=== PATIENT | female | born 1990 | race Caucasian/White ===

== ENCOUNTER 2023-08-04 00:25 | Emergency (ER) | payer MEDICAID, SELFPAY ==
[2023-08-04 00:35] VITALS: BP 162/94; PULSE 108; O2SAT 98
--- NOTE | 2023-08-04 00:46 | ED.ABDPAIN ---
HPI - Abdominal Pain General Stated Complaint: ABD PAIN Time Seen by Provider: 08/04/23 00:46 Source: patient Mode of arrival: ambulatory Limitations: no limitations PMFSH Social History Social History Advance Directives: No Advance Directives Information Provided: No Discharge Plan Discharge Print Language: Hungarian
--- NOTE | 2023-08-04 00:51 | PC.NURSE ---
per EMS they state that pt was very vague in her complaints and requested transfer to [place]. they state she told them that she missed the last bus into [place] where she resides. they speculate she was only requesting to come to [place] so she could get home as she [place] on [address]. 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
--- NOTE | 2023-08-04 00:51 | PC.NURSE ---
went into [facility] and pt had left
== END 2023-08-04 01:10 | disposition left against medical advice (07) ==
PROVIDERS: Emergency Provider Emergency Medicine
DX: Z53.21 Procedure and treatment not carried out due to patient leaving prior to being seen by health care provider (principal); R10.9 Unspecified abdominal pain

== ENCOUNTER 2023-10-09 16:22 | Emergency (ER) | payer SELFPAY ==
--- NOTE | 2023-10-09 17:01 | PC.NURSE ---
pt was called to triage x2 with no response
== END 2023-10-09 17:01 | disposition left against medical advice (07) ==
PROVIDERS: Emergency Provider Emergency Medicine
DX: R51.9 Headache, unspecified (principal)

== ENCOUNTER 2023-10-09 21:31 | Emergency (ER) | payer SELFPAY ==
[2023-10-09 21:54] VITALS: BP 127/72; PULSE 68; RESP 20; TEMP 36.5; O2SAT 100; BMI 24.2
[2023-10-09 22:27] LABS: MANUAL DIFF FLAG NO
[2023-10-09 22:28] LABS: Basophils Absolute Auto 0.1 X10*3/uL (0.0-0.2); Basophils Percent Auto 1.1 % (0-2); Eosinophils Absolute Auto 0.2 X10*3/uL (0.0-0.4); Hematocrit 33.3 % (37.0-47.0); Hemoglobin 10.7 g/dl (12.0-16.0); Imm Gran Abs Auto 0.02 X10*3/uL (0.00-0.03); Imm Gran Pct Auto 0.3 % (0.0-0.4); Lymphocytes Absolute Auto 2.2 X10*3/uL (1.2-4.9); Lymphocytes Percent Auto 33.5 % (20-40); Mean Corpuscular HGB Conc 32.1 g/dl (31.0-35.0); Mean Corpuscular Hemoglobin 27.7 pg (27.0-33.0); Mean Corpuscular Volume 86.3 fL (80.0-98.0); Mean Platelet Volume 10.4 fL (9.4-12.3); Monocytes Absolute Auto 0.6 X10*3/uL (0.1-1.2); Neutrophils Absolute Auto 3.4 x10*3/uL (2.0-8.3); Neutrophils Percent Auto 52.1 % (45-73); Platelet Count 240 X10*3/uL (160-400); Red Blood Count 3.86 X10*6/uL (4.20-5.50); Red Cell Distribution Width 17.4 % (11.0-16.0); White Blood Count 6.4 X10*3/uL (4.8-10.8)
[2023-10-09 22:43] LABS: Alanine Aminotransferase 159 U/L (0-31); Albumin Level 3.4 g/dL (3.5-5.0); Alkaline Phosphatase 92 U/L (39-117); Anion Gap 12 (12-20); Aspartate Amino Transferase 106 U/L (5-31); Bilirubin Total 0.6 mg/dL (0.0-1.0); Blood Urea Nitrogen 14 mg/dL (9-16); Calcium 8.8 mg/dL (8.4-10.2); Carbon Dioxide 27 mmol/L (22-29); Chloride 105 mmol/L (96-108); Estimated Glomerular Filt Rate > 60; Glucose Random 97 mg/dL (60-115); Potassium 4.3 mmol/L (3.3-5.1); Sodium 140 mmol/L (135-145); Total Protein 6.6 g/dL (6.5-8.0)
--- NOTE | 2023-10-10 00:22 | ED_ITS ---
HPI - General Adult General Chief complaint: Dental/Oral Stated complaint: facial swelling + possible tooth infection Time Seen by Provider: 10/10/23 00:17 Source: patient, RN notes reviewed and old records reviewed Mode of arrival: ambulatory Limitations: no limitations History of Present Illness ED Provider: Kwasi HPI narrative: 33-year-old female presents for evaluation of right facial swelling. The symptoms started this morning when she woke up. She states that she has multiple dental issues old dental fractures but does not have a dentist to have them removed She is able to eat and drink without difficulty She believes the affected teeth around the upper gums on the right side. Denies any recent facial or dental trauma Related Data Previous Rx's ?Medication ?Instructions ?Recorded amoxicillin 875 mg-potassium 1 tab PO Q12H #19 tabs 10/10/23 clavulanate 125 mg tablet Allergies Allergy/AdvReac Type Severity Reaction Status Date / Time divalproex sodium AdvReac Unknown Verified 10/09/23 21:56 [From Depakote] escitalopram [From Lexapro] AdvReac Unknown Verified 10/09/23 21:56 Review of Systems 2 Constitutional: Constitutional: Denies body ache(s), Denies chills, Denies fever(s) and Denies headache(s) ENT: Denies headache(s) and Reports mouth pain Cardiovascular: Cardiovascular: Denies chest pain and Denies dyspnea Respiratory: Respiratory: Denies cough and Denies dyspnea Gastrointestinal: Gastrointestinal: Denies abdominal pain, Denies nausea and Denies vomiting Musculoskeletal: Musculoskeletal: Denies back pain Integumentary/Breasts: Skin/Breast: Denies rash Neurologic: Denies headache(s) PMFSH Social History Social History Advance Directives: No Advance Directives Information Provided: Yes Do you have a plan to hurt others: No Plan Physical Exam ED Vital Signs: Vital Signs - 24 hr 10/09/23 21:54 Temperature 97.7 F Pulse Rate 68 Respiratory Rate 20 Blood Pressure 127/72 Pulse Oximetry 100 Oxygen Delivery Method Room Air BMI result Body Mass Index 24.2 Const General: healthy appearing, comfortable, no acute distress, alert and awake Nutritional Appearance: well nourished Orientation/consciousness: patient oriented x3 HENMT Other: Patient has right-sided facial swelling involving the right cheek. This does not extend above the maxillary region or towards the eye. There is no extension down towards the right side of the neck either. Patient has multiple dental fractures and dental caries involving the upper and lower gums. There is no obvious dental abscess. Airway is widely pain Head: Yes atraumatic Eyes Eyelids: Yes eyelids normal Conjunctivae: conjunctivae normal Sclerae: sclerae normal Corneas: corneas normal Pupils: Equal, round and reactive pupils present EOM: EOMs intact bilaterally Neck Neck: Yes full ROM Resp Effort & Inspection: normal respiratory effort, able to speak in complete sentences and not labored Skin General skin exam: elasticity normal Neuro General: patient oriented x3 Cranial nerves: Yes Equal, round and reactive pupils present and Yes Bilaterally intact EOM present Cognition (Neuro): normal cognition Medical Decision Making Medical Decision Making [facility] Narrative: 33-year-old female presents for evaluation of facial pain and swelling. She is multiple dental caries, likely an acute dental infection, there is no evidence of drainable abscess will discharge the patient with Augmentin and she was provided with a list of dental clinics Differential Diagnosis Differential Diagnoses: The differential diagnosis associated with the presentation includes Dental caries Dental trauma Gingivitis Dental abscess Facial swelling Facial pain Lab Data [facility] Lab Attestation statement: I reviewed the patient's lab results. No leukocytosis. The patient does have a mild anemia that is normocytic. This may be related to heavy menstrual cycle. No obvious source of bleeding today. Electrolytes within normal limits renal function within normal limits. Vital signs are normal, no evidence of sepsis 10/09/23 22:21 10/09/23 22:21 Labs: Lab Results 10/09/23 Range/Units 22:21 WBC 6.4 (4.8-10.8) X10*3/uL RBC 3.86 L (4.20-5.50) X10*6/uL Hgb 10.7 L (12.0-16.0) g/dl Hct 33.3 L (37.0-47.0) % MCV 86.3 (80.0-98.0) fL MCH 27.7 (27.0-33.0) pg MCHC 32.1 (31.0-35.0) g/dl RDW 17.4 H (11.0-16.0) % Plt Count 240 (160-400) X10*3/uL MPV 10.4 (9.4-12.3) fL Immature Gran % (Auto) 0.3 (0.0-0.4) % Neut % (Auto) 52.1 (45-73) % Lymph % (Auto) 33.5 (20-40) % [place] % (Auto) 10.0 (2-11) % Eos % (Auto) 3.0 (0-4) % Baso % (Auto) 1.1 (0-2) % Lymph # (Auto) 2.2 (1.2-4.9) X10*3/uL [place] # (Auto) 0.6 (0.1-1.2) X10*3/uL Eos # (Auto) 0.2 (0.0-0.4) X10*3/uL Baso # (Auto) 0.1 (0.0-0.2) X10*3/uL Abs Immat Gran (auto) 0.02 (0.00-0.03) X10*3/uL Absolute Neuts (auto) 3.4 (2.0-8.3) x10*3/uL Absolute Nucleated RBC 0.000 (0.0-0.012) X10*3/uL Nucleated RBC % (auto) 0.0 (0.0-0.2) /100WBC Sodium 140 (135-145) mmol/L Potassium 4.3 (3.3-5.1) mmol/L Chloride 105 (96-108) mmol/L Carbon Dioxide 27 (22-29) mmol/L Anion Gap 12 (12-20) BUN 14 (9-16) mg/dL Creatinine 0.78 (0.5-1.4) mg/dL Estim Creat Clear Calc 96.0 Estimated GFR > 60 Random Glucose 97 (60-115) mg/dL Calcium 8.8 (8.4-10.2) mg/dL Total Bilirubin 0.6 (0.0-1.0) mg/dL AST 106 H (5-31) U/L ALT 159 H (0-31) U/L Alkaline Phosphatase 92 (39-117) U/L Total Protein 6.6 (6.5-8.0) g/dL Albumin 3.4 L (3.5-5.0) g/dL Discharge Plan Discharge Clinical Impression: Fracture of tooth, Dental caries, Facial swelling Patient Disposition: Home, Self-Care Instructions: Acute Dental Trauma (ED), Toothache (ED) Additional Instructions: The swelling in your face is likely related to a dental infection. Take Augmentin twice daily for 10 days. Apply warm compresses to the area of swelling every 4 hours for 10-15 minutes. Follow-up with a dentist. You were provided with a list of dental clinics, but you do not have to see 1 of them if you would like to go elsewhere Prescriptions: New amoxicillin-pot clavulanate 875-125 mg tablet 1 tab PO Q12H Qty: 19 0RF Print Language: Frisian
[2023-10-10] MEDS: Amoxicillin/Potassium Clav 875 MG TABLET PO (00:29)
[2023-10-10 00:36] VITALS: BP 109/83; PULSE 65; RESP 18; TEMP 37.2; O2SAT 96
== END 2023-10-10 00:37 | disposition home or self-care (01) ==
PROVIDERS: Emergency Provider Internal Medicine
DX: K02.9 Dental caries, unspecified (principal); R51.9 Headache, unspecified; Z79.899 Other long term (current) drug therapy
CPT/HCPCS: 36415; 80053; 85025; 99282; 99283

== ENCOUNTER 2023-10-10 01:34 | Emergency (ER) | payer SELFPAY ==
--- NOTE | ~2023-10-10 | US_ITS ---
EXAMINATION: US VENOUS ULTRASOUND WITH DOPPLER LOWER EXTREMITY, RIGHT CLINICAL INFORMATION: Pain swelling erythema COMPARISON: None available. TECHNIQUE: Ultrasound of the deep veins is performed from the hip to the calf with compression sonography and color and pulse Doppler assessment. Spectral analysis with color-flow imaging is performed. FINDINGS: There is normal venous compression and respiratory variation and augmented flow. The visualized common femoral vein, superficial femoral vein, profunda femoral vein, popliteal vein, and the trifurcation region shows no evidence of deep venous thrombosis. There is no significant popliteal fossa cyst. Right inguinal lymph nodes noted morphologically benign-appearing the largest measuring 8 mm in short axis. Left inguinal lymph node noted relatively benign-appearing measuring 8 mm in short axis. If the patient's symptoms persist, followup ultrasound in 5 days 7 days might be of value to exclude proximal propagation from a non-visualized calf vein. US/US venous duplex LE RT IMPRESSION: 1. No DVT demonstrated in the right lower extremity. 2. Bilateral inguinal lymph nodes noted morphologically benign-appearing the largest measuring 8 mm in short axis.
--- NOTE | ~2023-10-10 | XR_ITS ---
EXAMINATION: XR TIBIA AND FIBULA, RIGHT CLINICAL INFORMATION: Infection anterior aspect of ankle COMPARISON: None available. TECHNIQUE: AP and lateral views of the right tibia and fibula were obtained. FINDINGS: Questionable defect along the dorsal aspect of the navicular may reflect a nondisplaced fracture versus summation artifact. Correlation with point tenderness. Ankle mortise is symmetric. Joint space alignment are maintained. Slight soft tissue edema of the lower extremity without soft tissue gas identified. XR/XR tibia fibula RT 2V IMPRESSION: 1. Questionable defect along the dorsal aspect of the navicular may reflect a nondisplaced fracture versus summation artifact. Correlation with point tenderness. 2. Slight soft tissue edema of the lower extremity without soft tissue gas identified.
[2023-10-10 01:58] VITALS: BP 113/64; PULSE 64; RESP 16; TEMP 36.9; O2SAT 98; BMI 30.9
[2023-10-10 05:15] VITALS: BP 114/66; PULSE 66; RESP 18; TEMP 36.8; O2SAT 98
[2023-10-10 07:43] VITALS: BP 149/90; PULSE 98; RESP 16; TEMP 37.1; O2SAT 97
--- NOTE | 2023-10-10 08:02 | ED_ITS ---
HPI - General Adult General Chief complaint: Extremity Problem Stated complaint: leg pain? Time Seen by Provider: 10/10/23 08:02 Source: patient Mode of arrival: ambulatory Limitations: no limitations History of Present Illness ED Provider: Marlene Lynn PA-C HPI narrative: The patient is a 33 year old assigned at female with a PMHx of DVT, and dental caries presents to the ER due to pain and wound of right lower extremity. Patient reports that the pain is sharp and achy, constant. Does not radiate elsewhere. Unable to bear weight on that leg, and hurts to walk, states feels like my elizabeth is going to break when I walk. Was seen by [facility] 2 weeks ago and given PO and topical antibiotics for ulcer on right elizabeth with no improvement. Used Tylenol for pain with no relief. Was seen yesterday at [facility] for dental infection, was started PO amoxicillin-potassium clavulanate 875-125 mg. Has mild nausea. Denies headache, vision changes, fever, chills, V/C/D, abdominal pain, chest pain, palpitations, and dyspnea. Relieving factors: immobilization Exacerbating factors: movement Associated symptoms: denies other symptoms Treatments prior to arrival: other (ABX for dental infection) Related Data Previous Rx's ?Medication ?Instructions ?Recorded amoxicillin 875 mg-potassium 1 tab PO BID 10 days #20 tabs 10/10/23 clavulanate 125 mg tablet amoxicillin 875 mg-potassium 1 tab PO Q12H #19 tabs 10/10/23 clavulanate 125 mg tablet Allergies Allergy/AdvReac Type Severity Reaction Status Date / Time divalproex sodium AdvReac Unknown Verified 10/10/23 02:02 [From Depakote] escitalopram [From Lexapro] AdvReac Unknown Verified 10/10/23 02:02 Review of Systems 2 Constitutional: Constitutional: Reports no additional constitutional complaints, Denies chills, Denies fever(s) and Denies night sweats Eyes: Eyes: Reports no additional eye complaints, Denies blurry vision, Denies change in vision, Denies diplopia, Denies eye discharge, Denies loss of vision and Denies eye pain ENT: Reports dental pain, Denies dizziness and Reports facial pain Cardiovascular: Cardiovascular: Reports no additional cardiovascular complaints, Denies chest pain, Denies lightheadedness, Denies Loss of Consciousness and Denies dyspnea Respiratory: Respiratory: Reports no additional respiratory complaints and Denies dyspnea Gastrointestinal: Gastrointestinal: Reports no additional gastrointestinal complaints, Denies abdominal pain, Denies melena, Denies hematochezia, Denies change in bowel habits and Denies change in stool character Genitourinary: Genitourinary: Denies hematuria, Denies urinary frequency, Denies dysuria, Denies urinary incontinence, Denies urinary hesitancy and Denies urinary urgency Musculoskeletal: Musculoskeletal: Reports no additional musculoskeletal complaints, Reports as per HPI, Denies myalgias, Denies numbness and Denies tingling Comments: right lower leg pain, right lower leg wound Neurologic: Denies dizziness, Denies loss of vision, Denies numbness and Denies tingling Psychiatric: Psychiatric: Reports no additional psychiatric complaints Endocrine: Endocrine: Reports no additional endocrine complaints Hematologic/Lymphatic: Hematologic/Lymphatic: Reports no additional hematologic/lymphatic complaints Allergic/Immunologic: Allergic/Immunologic: Reports no additional allergic/immunologic complaints PMFSH Past Medical History Attestation statement: The following information was validated with the patient. Source: old records reviewed and nursing notes reviewed Social History Social History Smoked in Last 30 Days: Yes Use of substances other than those prescribed or required for medical reasons: No Advance Directives: No Advance Directives Information Provided: No Do you have a plan to hurt others: No Plan Patient : No Physical Exam ED Vital Signs: Vital Signs - 24 hr 10/10/23 01:58 10/10/23 05:15 10/10/23 07:43 Temperature 98.5 F 98.2 F 98.8 F Pulse Rate 64 66 98 Respiratory Rate 16 18 16 Blood Pressure 113/64 114/66 149/90 H Pulse Oximetry 98 98 97 Oxygen Delivery Method Room Air Room Air Room Air 10/10/23 09:47 10/10/23 11:42 10/10/23 11:47 Temperature 98.1 F 98 F 98 F Pulse Rate 91 80 80 Respiratory Rate 18 15 15 Blood Pressure 139/85 159/91 H 159/91 H Pulse Oximetry 98 99 99 Oxygen Delivery Method Room Air BMI result Body Mass Index 30.9 Const General: cooperative, no acute distress, alert and awake Nutritional Appearance: well nourished Orientation/consciousness: patient oriented x3 Limitations: no limitations [facility] Head: Yes normal to inspection and Yes atraumatic Ears: hearing grossly normal bilaterally and external ears normal General nose exam: Normal external nose present, no nasal discharge noted and no epistaxis Face and sinus: No abrasion, Yes edema and No laceration Mouth: Normal oral and palatal mucosa present, no drooling and no muffled voice Teeth and gingiva: poor dentition Eyes General: appearance normal, both eyes and all related structures Periorbital: periorbital findings normal Eyelids: Yes eyelids normal Conjunctivae: conjunctivae normal Pupils: Equal, round and reactive pupils present EOM: EOMs intact bilaterally Neck Neck: Yes normal visual inspection, Yes full ROM and Yes no lymphadenopathy Chest Chest palpation & inspection: normal inspection of the chest Resp Effort & Inspection: normal respiratory effort and able to speak in complete sentences Auscultation: clear to auscultation bilaterally Cardio Rate: regular rate Rhythm: regular rhythm GI Inspection: Yes normal to inspection Neuro General: patient oriented x3 and moves all extremities Cranial nerves: Yes Equal, round and reactive pupils present Cognition (Neuro): normal cognition Motor exam (neuro): Abnormal motor strength present (right lower extremity strength 3/5 ) Extrem Other: General: Yes full ROM, Yes capillary refill normal and Yes no calf tenderness Right upper extremity: normal to inspection and full ROM; no cyanosis and no edema Left upper extremity: normal to inspection and full ROM; no cyanosis and no edema Right lower extremity: normal to inspection, lower leg Details: tenderness, no edema, laceration (a localized ulcer located on the anterior aspect of the right elizabeth, well-defined borders, mild surrounding erythema, with exudate. no signs of necrotic tissue. Moderately tender to palpation around ulcer. ) and warmth and foot Details: toes with normal ROM (Limited active ROM of right toes of right foot, full active ROM) and no edema; no tenderness and no unusual warmth; no cyanosis and no edema Left lower extremity: normal to inspection and full ROM; no cyanosis and no edema Psych Appearance: grossly normal Mental Status: mental status grossly normal Affect: normal affect Attitude: cooperative Thought process: Normal thought process present Thought content: Normal thought content present Insight: Good insight present (Psych) Medications Administered Discontinued Medications Generic Name Dose Route Start Last Admin Trade Name Freq PRN Reason Stop Dose Admin Hydrocodone Bitart/Acetaminophen 1 tab 10/10/23 08:25 10/10/23 08:34 Hydrocodone Bit/Acetam 5/325 Tablet PO 10/10/23 08:26 1 tab ONCE ONE Administration Amoxicillin/Clavulanate Potassium 875 mg 10/10/23 11:26 10/10/23 11:43 Amoxicillin/Potassium Clav 875 Mg Tablet PO 10/10/23 11:27 875 mg ONCE ONE Administration Ketorolac Tromethamine 15 mg 10/10/23 12:35 10/10/23 12:39 Ketorolac Tromethamine 15 Mg/Ml Vial IM 10/10/23 12:36 15 mg ONCE ONE Administration Ondansetron HCl 4 mg 10/10/23 08:25 10/10/23 08:34 Ondansetron Odt 4 Mg Tab.Waldodis TRANSLINGU 10/10/23 08:26 4 mg ONCE ONE Administration Procedures Orthopedic Splinting/Casting Injury #1: Side: right Lower Extremity Injury Location: ankle and foot Lower Extremity Immobilizer: boot orthosis Medical Decision Making Medical Decision Making MDM Narrative: The patient is a 33 year old assigned at female with a PMHx of DVT, anxiety, and dental caries presents to the ER due to pain and ulcer of right lower extremity. On arrival to the ER, the patient is hemodynamically stable. On examination, RLE has a localized ulcer located on the anterior aspect of the right elizabeth, well-defined borders, mild surrounding erythema. No apparent necrotic tissue. The lesion is moderately tender to palpation and has been present for 2 weeks. Surrounding skin is warm to touch. No calf tenderness, erythema, or edema. Additionally, facial swelling is apparent. Was seen in the ER last night for dental infection. Being treated with Augmentin. Otherwise, remaining PE is unremarkable. For diagnostics, heme lab is unremarkable, CMP portrays AST of 145 and ALT 183, CRP of 1.04. All other lab results are unremarkable. Patient's right tib fib XR showed a possible navicular fx, given patient's clinical presentation, I suspect this is a fracture. I consulted with orthopedics who recommended covering the patient with augmentin, placing her in a walking boot, and having her follow up on an outpatient basis. Patient's right lower extremity was placed in a walking boot, without incident. Patient's PMS was intact prior to and after boot placement. Patient's RLE US was negative for DVT. Differential Diagnosis Differential Diagnoses: The differential diagnosis associated with the presentation includes venous stasis ulcer, tibia fracture, fibula fracture, DVT, cellulitis, foot fracture Admission/Observation Consideration of admission/observation: Escalation of care including admission/observation considered Patient would have been admitted to the hospital had her work up had any findings where hospital admission was appropriate and her clinical presentation warranted hospital admission. 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 My interpretation of these results are in the MDM Rationale portion of this note. 10/10/23 08:21 10/10/23 08:21 Labs: Lab Results 10/10/23 Range/Units 08:21 WBC 5.9 (4.8-10.8) X10*3/uL RBC 4.44 (4.20-5.50) X10*6/uL Hgb 12.2 (12.0-16.0) g/dl Hct 38.2 (37.0-47.0) % MCV 86.0 (80.0-98.0) fL MCH 27.5 (27.0-33.0) pg MCHC 31.9 (31.0-35.0) g/dl RDW 17.3 H (11.0-16.0) % Plt Count 277 (160-400) X10*3/uL MPV 10.8 (9.4-12.3) fL Immature Gran % (Auto) 0.5 H (0.0-0.4) % Neut % (Auto) 62.1 (45-73) % Lymph % (Auto) 26.1 (20-40) % [place] % (Auto) 8.1 (2-11) % Eos % (Auto) 2.2 (0-4) % Baso % (Auto) 1.0 (0-2) % Lymph # (Auto) 1.5 (1.2-4.9) X10*3/uL [place] # (Auto) 0.5 (0.1-1.2) X10*3/uL Eos # (Auto) 0.1 (0.0-0.4) X10*3/uL Baso # (Auto) 0.1 (0.0-0.2) X10*3/uL Abs Immat Gran (auto) 0.03 (0.00-0.03) X10*3/uL Absolute Neuts (auto) 3.7 (2.0-8.3) x10*3/uL Absolute Nucleated RBC 0.000 (0.0-0.012) X10*3/uL Nucleated RBC % (auto) 0.0 (0.0-0.2) /100WBC ESR 7 (0-20) MM/HR Sodium 139 (135-145) mmol/L Potassium 4.0 (3.3-5.1) mmol/L Chloride 108 (96-108) mmol/L Carbon Dioxide 25 (22-29) mmol/L Anion Gap 10 L (12-20) BUN 11 (9-16) mg/dL Creatinine 0.75 (0.5-1.4) mg/dL Estim Creat Clear Calc 102.2 Estimated GFR > 60 Random Glucose 94 (60-115) mg/dL Calcium 9.3 (8.4-10.2) mg/dL Total Bilirubin 1.0 (0.0-1.0) mg/dL AST 145 H (5-31) U/L ALT 183 H (0-31) U/L Alkaline Phosphatase 97 (39-117) U/L C-Reactive Protein 1.04 H (< or = 0.50) mg/dL Total Protein 6.7 (6.5-8.0) g/dL Albumin 3.5 (3.5-5.0) g/dL Hold Red Top See Note Independent Interpretation I performed an independent interpretation of an: Plain X-Ray and Ultrasound Interpretation: My interpretation is in agreement with the radiologist's impression of these imaging studies. - EXAMINATION: US VENOUS ULTRASOUND WITH DOPPLER LOWER EXTREMITY, RIGHT CLINICAL INFORMATION: Pain swelling erythema COMPARISON: None available. TECHNIQUE: Ultrasound of the deep veins is performed from the hip to the calf with compression sonography and color and pulse Doppler assessment. Spectral analysis with color-flow imaging is performed. FINDINGS: There is normal venous compression and respiratory variation and augmented flow. The visualized common femoral vein, superficial femoral vein, profunda femoral vein, popliteal vein, and the trifurcation region shows no evidence of deep venous thrombosis. There is no significant popliteal fossa cyst. Right inguinal lymph nodes noted morphologically benign-appearing the largest measuring 8 mm in short axis. Left inguinal lymph node noted relatively benign-appearing measuring 8 mm in short axis. If the patient's symptoms persist, followup ultrasound in 5 days 7 days might be of value to exclude proximal propagation from a non-visualized calf vein. US/US venous duplex LE RT IMPRESSION: 1. No DVT demonstrated in the right lower extremity. 2. Bilateral inguinal lymph nodes noted morphologically benign-appearing the largest measuring 8 mm in short axis. Dictated By: Viri Bailey MD Signed By: Electronically signed by Viri Bailey MD 10/10/23 1104 - EXAMINATION: XR TIBIA AND FIBULA, RIGHT CLINICAL INFORMATION: Infection anterior aspect of ankle COMPARISON: None available. TECHNIQUE: AP and lateral views of the right tibia and fibula were obtained. FINDINGS: Questionable defect along the dorsal aspect of the navicular may reflect a nondisplaced fracture versus summation artifact. Correlation with point tenderness. Ankle mortise is symmetric. Joint space alignment are maintained. Slight soft tissue edema of the lower extremity without soft tissue gas identified. XR/XR tibia fibula RT 2V IMPRESSION: 1. Questionable defect along the dorsal aspect of the navicular may reflect a nondisplaced fracture versus summation artifact. Correlation with point tenderness. 2. Slight soft tissue edema of the lower extremity without soft tissue gas identified. Dictated By: Viri Bailey MD Signed By: Electronically signed by Viri Bailey MD 10/10/23 5026 Radiology Impression Discussion of test interpretation with radiology: I have reviewed the radiologist's reading. Prescription Management I considered prescription management with: Antibiotic (patient prescribed an antibiotic for right lower leg wound) Discharge Plan Discharge Clinical Impression: Foot, fracture, navicular Patient Disposition: Home, Self-Care Instructions: Foot Fracture in Adults (ED) Additional Instructions: Follow up with your primary care provider and an orthopedic provider. Keep your boot on whenever you are walking. You may remove the boot to shower and when seated. Given where your leg wound is, we will prescribe an antibiotic. Return to the emergency department immediately if your symptoms worsen or if you develop any dizziness, shortness of breath, difficulty breathing, chest pain, blurry vision, loss of vision, nausea, vomiting, abdominal pain, fever, chills, back pain, or any other complaints. Prescriptions: New amoxicillin-pot clavulanate 875-125 mg tablet 1 tab PO BID 10 Days Qty: 20 0RF No Action amoxicillin-pot clavulanate 875-125 mg tablet 1 tab PO Q12H Qty: 19 0RF Referrals: [facility] [Provider Group] (Call to establish and follow up with an orthopedic provider.) Violetta Petersen MD [Primary Care Provider] - Interventions: ED Discharge Assessment Last Done: 10/10/23 11:47 Discharge Date/Time: 10/10/23 12:59 Print Language: Mohawk
[2023-10-10 08:25] LABS: MANUAL DIFF FLAG NO
[2023-10-10 08:33] LABS: Basophils Absolute Auto 0.1 X10*3/uL (0.0-0.2); Eosinophils Absolute Auto 0.1 X10*3/uL (0.0-0.4); Eosinophils Percent Auto 2.2 % (0-4); Hematocrit 38.2 % (37.0-47.0); Hemoglobin 12.2 g/dl (12.0-16.0); Imm Gran Abs Auto 0.03 X10*3/uL (0.00-0.03); Imm Gran Pct Auto 0.5 % (0.0-0.4); Lymphocytes Absolute Auto 1.5 X10*3/uL (1.2-4.9); Lymphocytes Percent Auto 26.1 % (20-40); Mean Corpuscular HGB Conc 31.9 g/dl (31.0-35.0); Mean Corpuscular Hemoglobin 27.5 pg (27.0-33.0); Mean Platelet Volume 10.8 fL (9.4-12.3); Monocytes Absolute Auto 0.5 X10*3/uL (0.1-1.2); Monocytes Percent Auto 8.1 % (2-11); Neutrophils Absolute Auto 3.7 x10*3/uL (2.0-8.3); Neutrophils Percent Auto 62.1 % (45-73); Platelet Count 277 X10*3/uL (160-400); Red Blood Count 4.44 X10*6/uL (4.20-5.50); Red Cell Distribution Width 17.3 % (11.0-16.0); White Blood Count 5.9 X10*3/uL (4.8-10.8)
[2023-10-10] MEDS: Ondansetron ODT 4 MG TAB.RAPDIS TRANSLINGU (08:34)
[2023-10-10] MEDS: HYDROcodone Bit/Acetam 5/325 TABLET 1 TAB PO (08:34)
[2023-10-10 08:50] LABS: Alanine Aminotransferase 183 U/L (0-31); Albumin Level 3.5 g/dL (3.5-5.0); Alkaline Phosphatase 97 U/L (39-117); Anion Gap 10 (12-20); Aspartate Amino Transferase 145 U/L (5-31); Blood Urea Nitrogen 11 mg/dL (9-16); C Reactive Protein 1.04 mg/dL (< or = 0.50); Calcium 9.3 mg/dL (8.4-10.2); Carbon Dioxide 25 mmol/L (22-29); Chloride 108 mmol/L (96-108); Creatinine Clr Calc Pharmacy 102.2; Estimated Glomerular Filt Rate > 60; Glucose Random 94 mg/dL (60-115); Sodium 139 mmol/L (135-145); Total Protein 6.7 g/dL (6.5-8.0)
[2023-10-10 09:18] LABS: Erythrocyte Sedimentation Rate 7 MM/HR (0-20)
[2023-10-10 09:47] VITALS: BP 139/85; PULSE 91; RESP 18; TEMP 36.7; O2SAT 98
[2023-10-10 11:42] VITALS: BP 159/91; PULSE 80; RESP 15; TEMP 36.6; O2SAT 99
[2023-10-10] MEDS: Amoxicillin/Potassium Clav 875 MG TABLET PO (11:43)
[2023-10-10 11:47] VITALS: BP 159/91; PULSE 80; RESP 15; TEMP 36.6; O2SAT 99
[2023-10-10] MEDS: Ketorolac Tromethamine 15 MG/ML VIAL IM (12:39)
== END 2023-10-10 12:59 | disposition home or self-care (01) ==
PROVIDERS: Physician Assistant Medical; Emergency Provider Emergency Medicine; PCP Internal Medicine
DX: S92.254A Nondisplaced fracture of navicular [scaphoid] of right foot, initial encounter for closed fracture (principal); X58.XXXA Exposure to other specified factors, initial encounter; M79.661 Pain in right lower leg; Z86.718 Personal history of other venous thrombosis and embolism; Y93.9 Activity, unspecified; Y92.9 Unspecified place or not applicable; Y99.9 Unspecified external cause status
CPT/HCPCS: 36415; 73590; 80053; 85025; 85652; 86140; 93971; 96372; 99284; J1885

== ENCOUNTER 2023-10-17 01:07 | Emergency (ER) | payer SELFPAY ==
[2023-10-17] VITALS (7 sets, daily range): BP systolic 87–104; BP diastolic 43–61; PULSE 65–107; RESP 14–18; TEMP 36.6–36.7; O2SAT 96–100; BMI 29.4
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
--- OUTSIDE RECORDS SUMMARY | 2023-10-17 03:41 | XMS_ITS | Continuity of Care Document ---
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 01:16 MPV 10.4 femtoliters ()?? 09/29/2023 01:16 Nucleated RBC (Automated) 0.0 #/100 WBC'S ()?? 09/29/2023 01:16 Abs. NRBC 0.0 k/mm3 ()?? 09/29/2023 01:16 ?? CARDIAC High Sensitivity Troponin (HSTnT) 7 ng/L ()?? 09/28/2023 11:22 ?? CHEM GENERAL Sodium 136 mmol/L ()?? 09/29/2023 01:16 Potassium 4.3 mmol/L ()?? 09/29/2023 01:16 Chloride 105 mmol/L ()?? 09/29/2023 01:16 Bicarbonate Level 24 mmol/L ()?? 09/29/2023 01:16 Anion Gap 7 ()?? 09/29/2023 01:16 Glucose Level 106 mg/dL (High)?? 09/29/2023 01:16 BUN 8 mg/dL ()?? 09/29/2023 01:16 Creatinine-Blood 0.61 mg/dL ()?? 09/29/2023 01:16 Estimated GFR Creatinine 121 ML/MIN/1.73 M2 ()?? 09/29/2023 01:16 Calcium 9.0 mg/dL ()?? 09/29/2023 01:16 Lactate 2.2 mmol/L ()?? 09/28/2023 11:22 C-Reactive Protein 0.6 mg/dL (High)?? 09/27/2023 21:23 ?? ENDOCRINE/TUMOR MARKER TSH 0.12 uIU/mL (Low)?? 09/27/2023 21:23 Free T4 1.69 ng/dL ()?? 09/27/2023 21:23 ?? HEME OTHER Sed Rate 68 mm/hr (High)?? 09/27/2023 21:23 ?? URINE OTHER Est Creatinine Clearance 104.72 mL/min ()?? 09/29/2023 02:06 ? Abnormal Labs ?? BLOOD COUNT & DIFF Abs. NRBC?0.0 k/mm3 ()?09/29/2023 01:16 Hct?35.3 % (Low)?09/29/2023 01:16 Hgb?11.3 Gm/dL (Low)?09/29/2023 01:16 MCH?26.7 pg (Low)?09/29/2023 01:16 MCHC?32.0 g/dL (Low)?09/29/2023 01:16 Nucleated RBC (Automated)?0.0 #/100 WBC'S ()?09/29/2023 01:16 RDW-SD?51.1 femtoliters (High)?09/29/2023 01:16 ?? CHEM GENERAL Estimated GFR Creatinine?121 ML/MIN/1.73 M2 ()?09/29/2023 01:16 Glucose Level?106 mg/dL (High)?09/29/2023 01:16 ?? Note: Critical results are displayed in red. ? Assessment/Plan Chief Complaint: R ankle pain and wound ?? Diagnoses Bipolar disorder ??(F31.9) Cellulitis ??(L03.90) Cellulitis of right lower extremity ??(L03.115) Chest pain ??(R07.9) Leg pain ??(M79.606) MRSA infection ??(A49.02) Methadone dependence ??(F11.20) Polysubstance abuse ??(F19.10) Purulent abscess ??(L02.91) SOB (shortness of breath) ??(R06.02) Wound of right ankle ??(S91.001A) ?? Past medical history of DVT, bipolar disorder, polysubstance abuse currently on methadone, asthma, migraine, anemia presents to the emergency department with right ankle wound pain and swelling and redness.?? Findings are consistent with right lower extremity cellulitis with a purulent ruptured abscess due to suspected MRSA infection. ?? Cellulitis of right lower extremity (L03.115),?? Purulent abscess (L02.91),??MRSA infection (A49.02),?? Wound of right ankle (S91.001A) Leg pain (M79.606):?? Developed a small blister on her right ankle, which gradually increased in size over two weeks before rupturing and releasing pus-like material, accompanied by significant pain. Developed low-grade fever with mild leukocytosis.?? ESR CRP elevated.?? Lactate is within normal limits.?? Tachycardia improving.?? On supportive IV fluids. X-ray of her ankle revealed no fractures or osseous erosion, though she had a limited range of motion in the right ankle joint.?? ER attempted arthrocentesis which did not yield enough fluid for analysis.?? Ortho??considered a septic joint unlikely based on the physical exam and lab findings. No need for any invasive surgical intervention/debridement.?? No DVT on ultrasound.?? Wound care team consulted. Infection likely secondary to MRSA.?? Continue IV vancomycin empirically. Follow-up on blood culture results.?? Pain control with IV ketorolac.?? Supportive management.?? Dressing changes per wound care. Patient was seen by infectious disease department for continue??vancomycin for now. Blood cultures in process will follow. ?? SOB (shortness of breath) (R06.02) ?Grouped with??Chest pain (R07.9) : history of deep vein thrombosis (DVT) eight months ago, for which she was on apixaban for three months until a repeat Doppler ultrasound showed no blood clots CT angio was negative for PE. ??Pain is reproducible. ??EKG nonischemic. ??Likely musculoskeletal. ??Troponins are negative. ??Unlikely for ACS. ?? Polysubstance abuse (F19.10) ?Grouped with??Methadone dependence (F11.20) : Pharmacy confirmed dosing 40 mg? Bipolar disorder (F31.9):??Continue gabapentin and clonidine. ?? VTE Prophylaxis:??Enoxaparin subcutaneous ?? Discharge Planning:??Likely discharge in a day or 2 ?? Ongoing Medical Necessity:?? Right ankle wound and cellulitis ?? Code Status:??. ?Order Code Status:??Code Status Ordered ?? * Mary Gardner RN: PERFORM, SIGN, VERIFY, MODIFY, SIGN Event Display: Progress Note Hospital Authored Date: [id number] Patient: MARLEN QUIGLEY Age: 33 years Sex: Female : 1990 Associated Diagnoses: None Author: Mary Gardner RN Findings Problem Related to Alteration in Comfort : Alteration in Comfort/new 09/28/2023 18:00 EDT Alteration in Comfort Related to Disease process Goals & Outcomes: Comfort Pt will report acceptable level of comfort & pain control, Pt will state importance of adhering to pain strategy regime, Pt will demonstrate necessary skills to manage pain, Non-verbal indicators will indicate comfort/pain control Interventions Implemented: Comfort Assess pain using appropriate pain scale/tools, Assess aggravating factors & prevent them accordingly, Assess alleviating factors & promote them accordingly Goals/Interventions, Comfort Yes Comfort, Problem Start 09/28/2023 7:00 Reviewed plan with, Comfort Patient Patient Progression, Comfort Plan Initiation Comfort, Problem Ongoing Yes . Alteration in Integumentary : Alteration in Integumentary/new 09/28/2023 18:00 EDT Alteration in Integumentary Related to Cellulitis, Other: Septic joint Goals & Outcomes, Integumentary Nutritional intake is adequate for metabolic needs, Pt will maintain adequate fluid & nutritional balance, Pt will maintain intact skin integrity, Wound will progress towards healing Interventions, Integumentary Cleanse all wounds with Normal Saline, Consult Wound Care as needed for further interventions, Encourage & assist with range of motion exercises, Keep bed as flat as tolerated to reduce shearing, Keep linen clean, dry and wrinkle free, Keep skin clean & dry, Maintain sterile technique with dressing changes, Minimize friction, shear and moisture, Record extent of impaired skin integrity, Reposition pt off reddened areas, Teach Pt/caregiver s/s of infection Goals/Interventions, Integumentary Yes Integumentary, Problem Start 09/28/2023 7:00 Reviewed plan with, Integumentary Patient Patient Progression, Integumentary Plan Initiation . Narrative/Incidental Pt admitted today 09/27, Full code, dx ankle cellulitis, right septic joint. Hx of polysubtance abuse, bipolar disorder, and monitored by police. Pt stated I lost over 40 lbs in the last year due tomedication and after . Left upper arm iv access. Diet regular. Reports 8/10 pain in rightlower leg and foot, with little relief from tromadol, Davina Reis MD order dilauded 1 mg PRN, one dose is left. Alert and O x4, reports chest pain, but doctor ruled out need of tele. Lung sounds are clear, on RA. Continent of both last bm 09/26. Wet to dry wound care done, waiting for wound care team consult. Pt safety and comfort maintained. Bed in lowest position. Id, and allergy bands in place.. Note * Adrianne Segura RN: PERFORM Event Display: Discharge/Transfer Note Hospital Authored Date: [id number] Nursing Discharge Note Entered On: 09/30/2023 12:37 EDT Performed On: 09/30/2023 12:37 EDT by Adrianne Segura RN Nursing Discharge Note 2 Discharge Time : 09/30/2023 12:35 EDT Discharge Level of Care at Discharge : Correction Fac/Police/Longterm Patient Left Unit Via : Wheelchair Patient Accompanied Off Unit with : Responsible adult DC Instructions Provided & Signed by Pt : Yes Patient Understands D/C Instructions : Yes Patient Instructions Discharge Signed : Yes Did Pt have Specialty Bed or Wound Vac : No Adrianne Segura RN - 09/30/2023 12:37 EDT * Kelsea ALMANZAR, Renata Medina: PERFORM, MODIFY, MODIFY Event Display: Discharge/Transfer Note Hospital Authored Date: [id number] Patient: ??MARLEN QUIGLEY ? Age:??33 Years?Sex:??Female?:??1990?? Patient Information Discharge Location: S3 Primary Care Physician: iVoletta Petersen MD Admit Date/Time: 09/28/23 03:17 Discharge Disposition Discharge Disposition: ?? Discharge Diagnosis Leg pain (M79.606) Chest pain (R07.9) Cellulitis (L03.90) Wound of right ankle (S91.001A) Cellulitis of right lower extremity (L03.115) Purulent abscess (L02.91) SOB (shortness of breath) (R06.02) Bipolar disorder (F31.9) Methadone dependence (F11.20) Polysubstance abuse (F19.10) MRSA infection (A49.02) _ Discharge Medications Albuterol (albuterol CFC free 90 mcg/inh inhalation aerosol)?2?puff(s)?Inhalation?4 times a day?as needed?Wheezing/Shortness of Breath amiTRIPTYLINE?150?Milligram?By Mouth?Daily at bedtime Clonidine (cloNIDine 0.2 mg oral tablet)?0.2?Milligram?By Mouth?3 times a day Doxycycline (doxycycline hyclate 100 mg oral enteric coated tablet)?2?tab(s)?200?Milligram?By Mouth?Daily?for 8?Days?To complete 10 days of antibiotics Gabapentin (gabapentin 800 mg oral tablet)?1?tab(s)?800?Milligram?By Mouth?2 times a day Ibuprofen (ibuprofen 600 mg oral tablet)?600?Milligram?1?tablet?By Mouth?3 times a day Methadone?125?Milligram?Daily?goes to [facility] clinic in [place], dose is as reported bythe patient ? Allergies Allergies ?(Active and Proposed Allergies Only) CeleXA? (Severity: Unknown severity, Onset: Unknown) ?Comments: panic attacks and sense of doom, chest pain Depakote? (Severity: Unknown severity, Onset: Unknown) ?Comments: panic attacks and sense of doom, chest pain Zoloft? (Severity: Unknown severity, Onset: Unknown) ?Comments: panic attacks and sense of doom, chest pain ? Objective Past medical history of DVT, bipolar disorder, polysubstance abuse currently on methadone, asthma, migraine, anemia presents to the emergency department with right ankle wound pain and swelling and redness.?? Findings are consistent with right lower extremity cellulitis with a purulent ruptured abscess due to suspected MRSA infection and was treated for cellulitis of lower extremity. ?? Cellulitis of right lower extremity (L03.115),?? Purulent abscess (L02.91),??MRSA infection (A49.02),?? Wound of right ankle (S91.001A) Leg pain (M79.606):?? Developed a small blister on her right ankle, which gradually increased in size over two weeks before rupturing and releasing pus-like material, accompanied by significant pain. Developed low-grade fever with mild leukocytosis.?? ESR CRP elevated.?? Lactate is within normal limits.?? Tachycardia improving.?? On supportive IV fluids. X-ray of her ankle revealed no fractures or osseous erosion, though she had a limited range of motion in the right ankle joint.?? ER attempted arthrocentesis, cultures negative Per Ortho unlikely septic joint. No need for any invasive surgical intervention/debridement.?? No DVT on ultrasound.?? Wound care team consulted. Infection likely secondary to MRSA.?? Continue IV vancomycin empirically. Follow-up on blood culture results.?? Pain control with IV ketorolac.?? Supportive management.?? Dressing changes per wound care. vascular surgery was consulted - palpable distal pulses??in the AT, PT??and DP??arteries.?? Given??no signs of??deep vein thrombosis, palpable??pulses??in the distal extremities, no need for vascularintervention. Per ID - Continue vancomycin while in the hospital when discharge ready can switch pt to doxycycline 100mg BID to complete a 7-10 D course. Patient was seen by wound care - recommendations placed?? right anterior LE- Cleanse with Vashe. Pat dry. Apply Silvasorb to wound bed. Cover with Mepilex foam dressing. Change every other day and as needed for soilage/saturation ? SOB (shortness of breath) (R06.02) ?Grouped with??Chest pain (R07.9) : history of deep vein thrombosis (DVT) eight months ago, for which she was on apixaban for three months until a repeat Doppler ultrasound showed no blood clots CT angio was negative for PE. ??Pain is reproducible. ??EKG nonischemic. ??Likely musculoskeletal. ??Troponins are negative. ??Unlikely for ACS. ?? Polysubstance abuse (F19.10) ?Grouped with??Methadone dependence (F11.20) : Pharmacy confirmed dosing 40 mg? Bipolar disorder (F31.9):??Continue gabapentin and clonidine. ? . Physical Exam General:??Not in any acute distress Heart: Regular rate. S1 and s2 heard. No murmur, rub or gallop. Lungs: Clear to auscultation. No wheeze, crackles or rhonchi Abdomen : Soft, nondistended, nontender and bowel sounds are active. ??No organomegaly.?? Extremities: No pedal edema, swelling or cyanosis. peripheral pulses 2+ RLE: Right ankle with clean dressing, wound underneath??noted to have??no active discharge or purulence Neurological : grossly non focal. AA0 X3.? Pscy: Mood and affect appropriate. Pending Results Add On Lab Order ordered on 09/27/2023 Add On Lab Order ordered on 09/28/2023 Basic Metabolic Panel ordered on 09/28/2023 Body Fluid Cult Aer/Gram St/Extend Anaer ordered on 09/28/2023 CBC ordered on 09/28/2023 Cell Count and Differential Fluid ordered on 09/28/2023 Crystals Joint Fluid ordered on 09/28/2023 Lactic Acid Level ordered on 09/28/2023 Wound Deep Culture w/ Gram Smear ordered on 09/28/2023 Follow-Up Appointments Added Follow Up ?Time Frame ?Comments Violetta Petersen MD?1 week: call to discuss follow up visit Post Discharge Care 1. right anterior LE- Cleanse with Vashe. Pat dry. Apply Silvasorb to wound bed. Cover with Mepilexfoam dressing. Change every other day and as needed for soilage/saturation Home Health Face to Face ^HomeHealthFTF Results Discharge Labs BACTERIOLOGY Blood Culture Results Preliminary report ()?? 09/27/2023 21:23 Blood Culture Specimen Source BLOOD ()?? 09/27/2023 21:23 Blood Culture Isolate 1 Comment ()?? 09/27/2023 21:23 Gram Stain Isolate 1 Comment ()?? 09/28/2023 02:20 Gram Stain Isolate 2 No organisms seen ()?? 09/28/2023 02:20 Gram Stain Result Final report ()?? 09/28/2023 02:20 Blood Cult 2 Results Preliminary report ()?? 09/27/2023 22:00 Blood Culture 2 Specimen Source BLOOD ()?? 09/27/2023 22:00 Blood Culture 2 Isolate 1 Comment ()?? 09/27/2023 22:00 Body Fluid Culture Results Preliminary report ()?? 09/28/2023 02:20 Body Fluid Specimen Source JOINT FLUID ()?? 09/28/2023 02:20 Body Fluid Culture Isolate 1 Comment ()?? 09/28/2023 02:20 ?? BLOOD COUNT & DIFF WBC 6.5 k/mm3 ()?? 09/30/2023 00:41 RBC 4.20 m/mm3 ()?? 09/30/2023 00:41 Hgb 11.2 Gm/dL (Low)?? 09/30/2023 00:41 Hct 35.7 % ()?? 09/30/2023 00:41 MCV 85.0 femtoliters ()?? 09/30/2023 00:41 MCH 26.7 pg (Low)?? 09/30/2023 00:41 MCHC 31.4 g/dL (Low)?? 09/30/2023 00:41 Platelet Count 258 k/mm3 ()?? 09/30/2023 00:41 RDW-SD 52.2 femtoliters (High)?? 09/30/2023 00:41 MPV 10.8 femtoliters ()?? 09/30/2023 00:41 Nucleated RBC (Automated) 0.0 #/100 WBC'S ()?? 09/30/2023 00:41 Abs. NRBC 0.0 k/mm3 ()?? 09/30/2023 00:41 Abs. Neut 8.8 k/mm3 (High)?? 09/27/2023 21:23 Abs. Lymph 1.8 k/mm3 ()?? 09/27/2023 21:23 Abs. Summers 0.4 k/mm3 ()?? 09/27/2023 21:23 Abs. Eo 0.0 k/mm3 ()?? 09/27/2023 21:23 Abs. Baso 0.1 k/mm3 ()?? 09/27/2023 21:23 Neut % 79.0 % (High)?? 09/27/2023 21:23 Lymph % 16.1 % ()?? 09/27/2023 21:23 Summers % 3.3 % (Low)?? 09/27/2023 21:23 Eos % 0.0 % ()?? 09/27/2023 21:23 Baso % 0.7 % ()?? 09/27/2023 21:23 Imm Gran 0.9 % ()?? 09/27/2023 21:23 Abs. Imm Gran 0.1 k/mm3 ()?? 09/27/2023 21:23 ?? CARDIAC Nt-Probnp 291 pg/mL (High)?? 09/27/2023 21:23 High Sensitivity Troponin (HSTnT) 7 ng/L ()?? 09/28/2023 11:22 ?? CHEM GENERAL Sodium 136 mmol/L ()?? 09/30/2023 00:41 Potassium 4.1 mmol/L ()?? 09/30/2023 00:41 Chloride 104 mmol/L ()?? 09/30/2023 00:41 Bicarbonate Level 23 mmol/L ()?? 09/30/2023 00:41 Anion Gap 9 ()?? 09/30/2023 00:41 Glucose Level 87 mg/dL ()?? 09/30/2023 00:41 BUN 10 mg/dL ()?? 09/30/2023 00:41 Creatinine-Blood 0.67 mg/dL ()?? 09/30/2023 00:41 Estimated GFR Creatinine 118 ML/MIN/1.73 M2 ()?? 09/30/2023 00:41 Calcium 8.9 mg/dL ()?? 09/30/2023 00:41 Lactate 2.2 mmol/L ()?? 09/28/2023 11:22 C-Reactive Protein 0.6 mg/dL (High)?? 09/27/2023 21:23 ?? ENDOCRINE/TUMOR MARKER TSH 0.12 uIU/mL (Low)?? 09/27/2023 21:23 Free T4 1.69 ng/dL ()?? 09/27/2023 21:23 Blood <1 mIU/mL ()?? 09/27/2023 21:23 ? HEME OTHER Sed Rate 8 mm/hr ()?? 09/30/2023 00:41 ? URINE OTHER Est Creatinine Clearance 95.34 mL/min ()?? 09/30/2023 04:15 ? 35_ minutes spent on discharge * Adrianne Segura RN: PERFORM Event Display: Patient Education/Instruction Authored Date: Inpatient Adult Discharge Instructions. [address] [address] Name: MARLEN QUIGLEY : 1990?? Visit: 09/28/2023 03:17?? Current Date: 09/30/2023 11:23 ?? Account: [id number]?? Inpatient Adult Discharge Instructions We would like to thank you for allowing us to assist you with your healthcare needs. The following includes patient education materials and information regarding your injury/illness. Our entire staffstrives to provide an excellent experience for our patients and their families. PLEASE ENSURE YOU FOLLOW-UP PER THE INSTRUCTIONS BELOW! ?? YOUR OPINION IS IMPORTANT TO US! Please complete the survey you may receive by mail or email. Your feedback will be used to make improvements to the healthcare experiences of our patients and their families. Surveys are administered by [employer] ?? If further treatment with your primary care physician or another doctor is recommended, it is important for you to keep the appointment. Call your primary care physician or return to the Emergency Department immediately if your condition worsens, fails to improve, or new symptoms develop. If you need to find a doctor, you can call [facility] Link for a referral at [phone] or toll free at [phone] or log in to [email or web address].. ?? [facility], in keeping with [facility] guidance, no longer requires face masks for staff, patientsor visitors in most situations. Similiar to time spent indoors at other locations, there is the chance that you were exposed to repiratory viruses during your time with us (such as flu or COVID-19). If you develop symptoms concerning for a viral respiratory infection, please seek testing (and treatment if indicated) from your medical provider or home test kit. ?? You can view and manage your care through the patient portal or by using a health care leanna of your choosing. [employer] is a website that allows you to securely view your medical information including your hospital discharge summary, office visit summaries, medications and follow-up visits. You can also request appointments, renew medications, and request access to your medical information using a health care leanna of your choosing, or just ask a question. You can enroll at [email or web address] or register during your next office visit. You have been discharged from [facility], Patient Care Unit: S3??. If you have any questions regarding these instructions, including results of studies pending, afteryou leave, please call us and we will be happy to assist you 22/10. [facility] Your Care Team Attending Physician Renata Enamorado MD?? Consulting Providers Renata Enamroado MD?? Discharging Providers Renata Enamorado MD Reason for Your Visit R ankle pain and wound?? Your Diagnosis Bipolar disorder Cellulitis Cellulitis of right lower extremity Methadone dependence MRSA infection Polysubstance abuse Purulent abscess SOB (shortness of breath) Wound of right ankle Tests Performed Below is a partial list of the tests performed during your hospitalization. You may have had other tests and procedures not included in this list. Please discuss all test results with your provider. Basic Metabolic Panel Blood Culture Blood Culture #2 Blood Culture 2 Results Blood Culture Result Body Fluid Cult Aer/Gram St/Extend Anaer?-- Results Pending -- Body Fluid Culture Reflex C-REACTIVE PROTEIN CBC CBC w/ Differential FREE T4 Gram Stain Result High??Sensitivity??Troponin T Lactate Level?-- Results Pending -- Lactic Acid Level Serum Quantitative ProBNP Sedimentation Rate Troponin T, High Sensitivity TSH WITH REFLEX TO FT4 CT Angio Chest US Doppler Ext Lower Venous Bilat XR Ankle Min 3 Views Right XR Chest 2 Views Frontal and Lat You will be contacted within 72 hours with your results. Add On Lab Order?? Basic Metabolic Panel?? Body Fluid Cult Aer/Gram St/Extend Anaer?? CBC?? Cell Count and Differential Fluid?? Crystals Joint Fluid?? Lactic Acid Level (Lactate Level)?? Wound Deep Culture w/ Gram Smear?? Primary Care Provider Violetta Petersen MD? Advance Directive Health Care Proxy on File Yes - Health Care Proxy Discharge Vitals Temperature: 97.4 DegF Height: 158 cm Pulse Rate: 56 bpm Weight: 68.1 kg Respiratory Rate: 18 br/min Body Mass Index:??27.28 kg/m2??High Respiratory Rate: 18 br/min Body surface area: 1.73 Systolic Blood Pressure: 131 mm Hg ?? Diastolic Blood Pressure:??89 mm Hg??High ?? Oxygen Saturation: 100 % ?? Studies Pending All studies ordered during this hospital stay have been completed unless listed below. Please discuss all pending results with your provider listed above in these instructions. ?? Add On Lab Order?? Basic Metabolic Panel?? Body Fluid Cult Aer/Gram St/Extend Anaer?? CBC?? Cell Count and Differential Fluid?? Crystals Joint Fluid?? Lactic Acid Level (Lactate Level)?? Wound Deep Culture w/ Gram Smear?? What to do next Instructions From Your Doctor ?? Orders? 09/30/23 10:32:00 EDT?? You Need to Schedule the Following Appointments Follow Up with??Violetta Petersen MD When:??Within 1 week: call to discuss follow up visit Where: [address] [place] [phone]- Discharge Medications MARLEN QUIGLEY :1990 Visit Date:09/28/2023 Medications: Please continue your medications until treatment is completed or stopped by your provider. Medications not listed below should be discontinued. Discuss any questions related to medications with your provider. What How Much When Instructions Next Dose New Doxycycline (doxycycline hyclate 100 mg oral enteric coated tablet) 2 tab(s) Oral Daily Duration: 8 Days To complete 10 days of antibiotics ?? Pickup at [facility] 3 7 AM Unchanged Albuterol (albuterol CFC free 90 mcg/ inh inhalation aerosol) 2 puff(s) Inhalation 4 times a day as needed for Wheezing/Shortness of Breath as needed Unchanged amiTRIPTYLINE 150 Milligram Oral Daily at Bedtime Bedtime Unchanged Clonidine (cloNIDine 0.2 mg oral tablet) 0.2 Milligram Oral 3 times a day 09/29 3pm Unchanged Gabapentin (gabapentin 800 mg oral tablet) 1 tab(s) Oral Twice a day 09/29 pm Unchanged Ibuprofen (ibuprofen 600 mg oral tablet) 1 tab(s) Oral 3 times a day 09/29 3pm Unchanged Methadone 125 Milligram Daily goes to [facility] clinic in [place], dose is as reported by the patient ?? received only 40mg today 09/29 Pharmacy Information [facility] 3: [address], [place] [id number] [phone] Prescription Given During Visit Doxycycline (doxycycline hyclate 100 mg oral enteric coated tablet) - 2 tablet = 200 mg, By Mouth, Daily, # 16 tablet, 0 Refills, To complete 10 days of antibiotics, [facility], [address] [place] [phone]?? Laboratory Results Below is a partial list of the most recent Laboratory test results done prior to this discharge. You may have had other tests and procedures not included in this list. Please discuss all test resultswith your provider. Est Creatinine Clearance - 95.34 mL/min (09/30/2023) Basic Metabolic Panel (09/30/2023) ???Sodium - 136 mmol/L???Potassium - 4.1 mmol/L???Chloride - 104 mmol/L???Bicarbonate Level - 23 mmol/L???Anion Gap - 9???Glucose Level - 87 mg/dL???BUN - 10 mg/dL???Creatinine-Blood - 0.67 mg/dL???Estimated GFR Creatinine - 118 ML/MIN/1.73 M2???Calcium - 8.9 mg/dL Blood Culture (09/27/2023) ???Blood Culture Results - Preliminary report???Blood Culture Specimen Source - BLOOD Blood Culture #2 (09/27/2023) ???Blood Cult 2 Results - Preliminary report???Blood Culture 2 Specimen Source - BLOOD Blood Culture 2 Results (09/27/2023) ???Blood Culture 2 Isolate 1 - Comment Blood Culture Result (09/27/2023) ???Blood Culture Isolate 1 - Comment Body Fluid Culture Reflex (09/28/2023) ???Body Fluid Culture Isolate 1 - Comment C-REACTIVE PROTEIN (09/27/2023) ???C-Reactive Protein - 0.6 mg/dL CBC (09/30/2023) ???WBC - 6.5 k/mm3???RBC - 4.20 m/mm3???Hgb - 11.2 Gm/dL???Hct - 35.7 %???MCV - 85.0 femtoliters???MCH - 26.7 pg???MCHC -

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
--- OUTSIDE RECORDS SUMMARY | 2023-10-17 03:41 | XMS_ITS | Continuity of Care Document ---
Author Organization [facility] Address [address] [place] [address]- Care Team Providers Care Fire Protection Designer Name Role Phone Trinity ALMANZAR, Violetta Diamond Primary Care Physician [phone] Encounter [facility] Date(s): 07/12/21 - 07/19/21 [facility] [address] [place] [address]- Attending Physician: Not on Staff, Attending MD Referring Physician: Gege Mullen CNM Allergies, Adverse Reactions, [...] 7:44:15 EDT, Route to Pharmacy Electronically, NCPDP_ID- [id number], [facility] [address] Start Date: 11/21/17 Status: Ordered Dulcolax 5 mg oral enteric coated tablet 2 tablet = 10 mg, By Mouth, Daily, PRN for constipation, for 14 days, # 28 tablet, 0 Refills, Acute07/26/21 16:33:00 EDT, 07/12/21 16:33:00 EDT, EC Tablet, [facility][id number], Partial fill upon patient request if the [...] 2 yrs. 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. [...] mo's ago, per pt, was hospitalized at [facility] [place]. 12in past 13reports she used [...]
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
--- NOTE | 2023-10-17 06:47 | ED.GENADULT ---
HPI - General Adult General Chief complaint: Extremity Injury, Lower Stated complaint: rt foot pain Time Seen by Provider: 10/17/23 06:45 Source: patient Mode of arrival: ambulatory Limitations: no limitations History of Present Illness ED Provider: Marlene Lynn PA-C HPI narrative: Patient is a 33 year old assigned female at with a history of DVT and right navicular foot fracture presenting to the emergency department today with continued right foot pain. Patient states that her foot has continued to hurt and she has not followed up with the orthopedic office. Patient denies any dizziness, lightheadedness, abdominal pain, nausea, vomiting, fever, chills, blurry vision, double vision, loss of vision, chest pain, difficulty breathing, shortness of breath, back pain, night sweats, pain with urination, increased urinary frequency, increased urinary urgency, blood in her urine or stool, syncope or a near syncopal episode, recent trauma or falls, bowel incontinence, bladder incontinence, or any other complaints at this time. Severity: mild Relieving factors: none Exacerbating factors: movement Associated symptoms: denies other symptoms Treatments prior to arrival: other (walking boot) Related Data Previous Rx's ?Medication ?Instructions ?Recorded amoxicillin 875 mg-potassium 1 tab PO BID 10 days #20 tabs 10/10/23 clavulanate 125 mg tablet amoxicillin 875 mg-potassium 1 tab PO Q12H #19 tabs 10/10/23 clavulanate 125 mg tablet Allergies Allergy/AdvReac Type Severity Reaction Status Date / Time divalproex sodium AdvReac Unknown Verified 10/17/23 01:22 [From Depakote] escitalopram [From Lexapro] AdvReac Unknown Verified 10/17/23 01:22 Review of Systems Constitutional: Constitutional: Reports no additional constitutional complaints, Denies chills, Denies fever(s) and Denies night sweats Eyes: Eyes: Reports no additional eye complaints, Denies blurry vision, Denies change in vision, Denies diplopia, Denies eye discharge, Denies loss of vision and Denies eye pain ENT: Denies dizziness Cardiovascular: Cardiovascular: Reports no additional cardiovascular complaints, Denies chest pain, Denies lightheadedness, Denies Loss of Consciousness and Denies dyspnea Respiratory: Respiratory: Reports no additional respiratory complaints and Denies dyspnea Gastrointestinal: Gastrointestinal: Reports no additional gastrointestinal complaints, Denies abdominal pain, Denies melena, Denies hematochezia, Denies change in bowel habits and Denies change in stool character Genitourinary: Genitourinary: Denies hematuria, Denies urinary frequency, Denies dysuria, Denies urinary incontinence, Denies urinary hesitancy and Denies urinary urgency Musculoskeletal: Musculoskeletal: Reports no additional musculoskeletal complaints, Denies numbness and Denies tingling Comments: right foot pain Neurologic: Denies dizziness, Denies loss of vision, Denies numbness and Denies tingling Psychiatric: Psychiatric: Reports no additional psychiatric complaints Endocrine: Endocrine: Reports no additional endocrine complaints Hematologic/Lymphatic: Hematologic/Lymphatic: Reports no additional hematologic/lymphatic complaints Allergic/Immunologic: Allergic/Immunologic: Reports no additional allergic/immunologic complaints PMFSH Past Medical History Attestation statement: The following information was validated with the patient. Source: old records reviewed and nursing notes reviewed Social History Social History Smoked in Last 30 Days: Yes Advance Directives: No Advance Directives Information Provided: Yes Physical Exam ED Vital Signs: Vital Signs - 24 hr 10/17/23 01:18 10/17/23 03:40 10/17/23 05:03 Temperature 97.8 F 97.8 F Pulse Rate 107 H 83 Respiratory Rate 18 17 Blood Pressure 104/61 101/43 L 98/59 L Pulse Oximetry 99 97 Oxygen Delivery Method Room Air Room Air Room Air 10/17/23 05:23 10/17/23 07:28 10/17/23 07:44 Temperature 97.8 F 98.1 F 98.1 F Pulse Rate 71 65 67 Respiratory Rate 18 14 16 Blood Pressure 96/53 L 87/45 L 88/48 L Pulse Oximetry 97 100 96 Oxygen Delivery Method Room Air Room Air Room Air 10/17/23 08:04 Temperature 98.1 F Pulse Rate 67 Respiratory Rate 16 Blood Pressure 88/48 L Pulse Oximetry 96 Oxygen Delivery Method Room Air BMI result Body Mass Index 29.4 Const General: cooperative, no acute distress, alert and awake Nutritional Appearance: well nourished Orientation/consciousness: patient oriented x3 Limitations: no limitations HENMT Head: Yes normal to inspection and Yes atraumatic Ears: hearing grossly normal bilaterally and external ears normal General nose exam: Normal external nose present, no nasal discharge noted and no epistaxis Face and sinus: Yes normal facial exam, No abrasion and No laceration Mouth: Normal oral and palatal mucosa present, no drooling and no muffled voice Eyes General: appearance normal, both eyes and all related structures Periorbital: periorbital findings normal Eyelids: Yes eyelids normal Conjunctivae: conjunctivae normal Pupils: Equal, round and reactive pupils present EOM: EOMs intact bilaterally Neck Neck: Yes normal visual inspection, Yes full ROM and Yes no lymphadenopathy Chest Chest palpation & inspection: normal inspection of the chest Resp Effort & Inspection: normal respiratory effort and able to speak in complete sentences GI Inspection: Yes normal to inspection Neuro General: patient oriented x3 and moves all extremities Cranial nerves: Yes Equal, round and reactive pupils present Cognition (Neuro): normal cognition Extrem General: Yes normal to inspection, Yes full ROM and Yes capillary refill normal Psych Appearance: grossly normal Mental Status: mental status grossly normal Affect: normal affect Attitude: cooperative Thought process: Normal thought process present Thought content: Normal thought content present Insight: Good insight present (Psych) Medications Administered Discontinued Medications Generic Name Dose Route Start Last Admin Trade Name Freq PRN Reason Stop Dose Admin Ketorolac Tromethamine 15 mg 10/17/23 07:17 10/17/23 07:44 Ketorolac Tromethamine 15 Mg/Ml Vial IM 10/17/23 07:18 15 mg ONCE ONE Administration Medical Decision Making Medical Decision Making [facility] Narrative: Patient is a 33 year old assigned female at with a history of DVT and right navicular fracture presenting to the emergency department today with persistent right foot/ankle pain. Patient's physical exam was unremarkable. I explained my physical exam findings to the patient. I answered all questions asked by the patient. I stressed the importance of the patient taking her medication as directed (either prescribed or as the over the counter packaging recommends). I stressed the importance of the patient following up with her primary care provider and an orthopedic provider. I stressed the importance of the patient returning to the emergency department immediately if her symptoms were to worsen or if she were to develop any dizziness, shortness of breath, difficulty breathing, chest pain, blurry vision, loss of vision, nausea, vomiting, abdominal pain, fever, chills, back pain, or any other complaints. Patient verbalized agreement and understanding with this treatment plan and discharge. Differential Diagnosis Differential Diagnoses: The differential diagnosis associated with the presentation includes Navicular fracture Foot pain Ankle pain Admission/Observation Consideration of admission/observation: Escalation of care including admission/observation considered Patient would have been admitted to the hospital had her clinical presentation warranted hospital admission. Discharge Plan Discharge Clinical Impression: Foot, fracture, navicular Patient Disposition: Home, Self-Care Instructions: Foot Fracture in Adults (ED) Additional Instructions: Follow up with your primary care provider and an orthopedic provider. Return to the emergency department immediately if your symptoms worsen or if you develop any dizziness, shortness of breath, difficulty breathing, chest pain, blurry vision, loss of vision, nausea, vomiting, abdominal pain, fever, chills, back pain, or any other complaints. Prescriptions: No Action amoxicillin-pot clavulanate 875-125 mg tablet 1 tab PO Q12H Qty: 19 0RF amoxicillin-pot clavulanate 875-125 mg tablet 1 tab PO BID 10 Days Qty: 20 0RF Referrals: [facility] [place] [facility] [place] [facility] [Provider Group] Violetta Petersen MD [Primary Care Provider] - Interventions: ED Discharge Assessment Last Done: 10/17/23 08:04 Discharge Date/Time: 10/17/23 08:05 Print Language: [place] Islander
[2023-10-17] MEDS: Ketorolac Tromethamine 15 MG/ML VIAL IM (07:44)
== END 2023-10-17 08:05 | disposition home or self-care (01) ==
PROVIDERS: Emergency Provider Emergency Medicine Emergency Medical Services; PCP Internal Medicine
DX: M79.671 Pain in right foot (principal); S92.251D Displaced fracture of navicular [scaphoid] of right foot, subsequent encounter for fracture with routine healing; X58.XXXD Exposure to other specified factors, subsequent encounter; Z86.718 Personal history of other venous thrombosis and embolism
CPT/HCPCS: 96372; 99284; J1885

== ENCOUNTER 2023-12-02 15:39 | Emergency (ER) | payer MEDICAID, SELFPAY ==
[2023-12-02 15:56] VITALS: BP 107/57; PULSE 81; RESP 18; TEMP 36.8; O2SAT 100; BMI 27.4
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
[2023-12-02 16:22] LABS: MANUAL DIFF FLAG NO
[2023-12-02 16:25] LABS: Basophils Absolute Auto 0.1 X10*3/uL (0.0-0.2); Basophils Percent Auto 0.6 % (0-2); Eosinophils Absolute Auto 0.2 X10*3/uL (0.0-0.4); Hematocrit 42.7 % (37.0-47.0); Imm Gran Abs Auto 0.02 X10*3/uL (0.00-0.03); Imm Gran Pct Auto 0.3 % (0.0-0.4); Mean Corpuscular HGB Conc 32.8 g/dl (31.0-35.0); Mean Corpuscular Hemoglobin 28.9 pg (27.0-33.0); Mean Corpuscular Volume 88.2 fL (80.0-98.0); Mean Platelet Volume 10.6 fL (9.4-12.3); Monocytes Absolute Auto 0.4 X10*3/uL (0.1-1.2); Monocytes Percent Auto 5.5 % (2-11); Neutrophils Absolute Auto 5.3 x10*3/uL (2.0-8.3); Neutrophils Percent Auto 66.6 % (45-73); Platelet Count 247 X10*3/uL (160-400); Red Blood Count 4.84 X10*6/uL (4.20-5.50); Red Cell Distribution Width 14.3 % (11.0-16.0)
[2023-12-02 16:40] LABS: Alanine Aminotransferase 35 U/L (0-31); Alkaline Phosphatase 70 U/L (39-117); Anion Gap 12 (12-20); Aspartate Amino Transferase 23 U/L (5-31); Bilirubin Total 0.2 mg/dL (0.0-1.0); Blood Urea Nitrogen 13 mg/dL (9-16); C Reactive Protein 2.34 mg/dL (< or = 0.50); Calcium 9.5 mg/dL (8.4-10.2); Carbon Dioxide 27 mmol/L (22-29); Chloride 106 mmol/L (96-108); Creatinine Clr Calc Pharmacy 103.3; Estimated Glomerular Filt Rate > 60; Glucose Random 90 mg/dL (60-115); Potassium 3.7 mmol/L (3.3-5.1); Sodium 141 mmol/L (135-145); Total Protein 7.7 g/dL (6.5-8.0)
[2023-12-02 17:04] LABS: Erythrocyte Sedimentation Rate 13 MM/HR (0-20)
[2023-12-02] MEDS: Bacitracin Oint 0.9 GM PACKET 1 APPL TOPICAL (19:40)
[2023-12-02] MEDS: Doxycycline Monohydrate 100 MG CAPSULE PO (19:40)
[2023-12-02] MEDS: cephALEXin 500 MG CAPSULE PO (19:40)
[2023-12-02 19:46] VITALS: BP 108/68; PULSE 90; RESP 20; TEMP 37; O2SAT 100
[2023-12-02 19:47] VITALS: BP 108/68; PULSE 90; RESP 20; TEMP 37; O2SAT 100
== END 2023-12-02 19:48 | disposition home or self-care (01) ==
PROVIDERS: Physician Assistant Medical; Emergency Provider Emergency Medicine; PCP Internal Medicine
DX: T24.212A Burn of second degree of left thigh, initial encounter (principal); X16.XXXA Contact with hot heating appliances, radiators and pipes, initial encounter; Y93.9 Activity, unspecified; Y92.9 Unspecified place or not applicable; Y99.9 Unspecified external cause status
CPT/HCPCS: 36415; 80053; 82550; 85025; 85652; 86140; 99283; 99284